=== PATIENT | male | born 1965 | race Caucasian/White ===

== ENCOUNTER → 2017-09-20 | Outpatient (CLI) | payer BC, OTHER ==
[~2017-09-20] MED LIST: ANTIVERT25 MG PO; ASPIRIN EC325 M1 PO; ATORVASTATIN CA10 MG PO; CHANTIX1 MG PO; CIPRO500 M1 PO; PEPCID20 MG PO; PHENERGAN 25 MG25 M1 PO; PRILOSEC 20 MG20 MG PO; PROMS25 WY RECTAL; VALIUM5 MG PO; ZOFRAN ODT4 MG PO
== END ==
LOC: MRI 09:19
DX: I77.74 Dissection of vertebral artery (principal)